=== PATIENT | female | born 1980 | race Caucasian/White ===

== ENCOUNTER → 2019-04-27 | Outpatient (CLI) | payer BC ==
--- NOTE | 2019-04-28 13:13 | MM ---
Reason for exam: screening (asymptomatic). Last mammogram was performed 1 year and 8 months ago. Physical Findings: A clinical breast exam by your physician is recommended on an annual basis and results should be correlated with mammographic findings. MG Screening Mammo w CAD Bilateral CC and MLO view(s) were taken. Prior study comparison: September 05, 2017, bilateral MG screening mammo w CAD. There are scattered fibroglandular densities. There is no discrete abnormality. ASSESSMENT: Negative, BI-RAD 1 RECOMMENDATION: Routine screening mammogram of both breasts in 1 year.
== END | disposition home or self-care (01) ==
LOC: RADMAMWWP 07:50
PROVIDERS: ATTEND Family Medicine
DX: Z12.31 Encounter for screening mammogram for malignant neoplasm of breast (principal)
CPT/HCPCS: 77067

== ENCOUNTER → 2021-01-02 | Outpatient (CLI) | payer BC ==
--- NOTE | 2021-01-03 14:39 | MM ---
Reason for exam: screening (asymptomatic). Last mammogram was performed 1 year and 8 months ago. Physical Findings: A clinical breast exam by your physician is recommended on an annual basis and results should be correlated with mammographic findings. MG Screening Mammo w CAD Bilateral CC and MLO view(s) were taken. Prior study comparison: April 27, 2019, bilateral MG screening mammo w CAD. September 05, 2017, bilateral MG screening mammo w CAD. There are scattered fibroglandular densities. There is no discrete abnormality. No significant changes when compared with prior studies. ASSESSMENT: Negative, BI-RAD 1 RECOMMENDATION: Routine screening mammogram of both breasts in 1 year.
== END | disposition home or self-care (01) ==
LOC: RADMAMWWP 10:04
PROVIDERS: ATTEND Obstetrics & Gynecology
DX: Z12.31 Encounter for screening mammogram for malignant neoplasm of breast (principal)
CPT/HCPCS: 77067

== ENCOUNTER → 2021-01-09 | Outpatient (CLI) | payer BC ==
--- NOTE | 2021-01-09 12:19 | US ---
EXAMINATION TYPE: US abdomen limited DATE OF EXAM: 01/09/2021 COMPARISON: NONE CLINICAL HISTORY: K43.9 Hernia of interior abdominal wall. Assess for hernia at location of: left abdominal wall Patient has palpable abnormality left. Gross morbid obesity. Unable to visualize hernia by ultrasound . Real-time scanning was performed by the shoe repair supervisor utilizing Valsalva and additional dynamic maneuve rs to assess for hernia. Images of the contralateral side were also acquired for direct comparison. IMPRESSION: 1. No suspicious abnormalities just anterior abdominal wall hernia. Additional evaluation with radiog raphic, CT is recommended.
== END | disposition home or self-care (01) ==
LOC: RADUSWWP 07:09
PROVIDERS: ATTEND Family Medicine
DX: K43.9 Ventral hernia without obstruction or gangrene (principal)
CPT/HCPCS: 76705

== ENCOUNTER → 2022-01-15 | Outpatient (CLI) | payer OTHER ==
--- NOTE | 2022-01-17 10:47 | MM ---
Reason for exam: screening (asymptomatic). Last mammogram was performed 1 year ago. History: Patient is nulliparous. Taking hormonal contraceptives for 7 years. Physical Findings: A clinical breast exam by your physician is recommended on an annual basis and results should be correlated with mammographic findings. MG Screening Mammo w CAD Bilateral CC, MLO, and XCCL view(s) were taken. Prior study comparison: January 02, 2021, bilateral MG screening mammo w CAD. April 27, 2019, bilateral MG screening mammo w CAD. There are scattered fibroglandular densities. No significant changes when compared with prior studies. ASSESSMENT: Benign, BI-RAD 2 RECOMMENDATION: Routine screening mammogram of both breasts in 1 year.
== END | disposition home or self-care (01) ==
LOC: RADMAMWWP 14:45
PROVIDERS: ATTEND Obstetrics & Gynecology
DX: Z12.31 Encounter for screening mammogram for malignant neoplasm of breast (principal)
CPT/HCPCS: 77067

== ENCOUNTER → 2022-03-29 | Outpatient (CLI) | payer OTHER ==
--- NOTE | 2022-03-29 14:06 | CT ---
EXAMINATION TYPE: CT chest wo con CT DLP: 1203.5 mGycm, Automated exposure control for dose reduction was used. DATE OF EXAM: 03/29/2022 1:46 PM COMPARISON: None CLINICAL INDICATION:Female, 42 years old with history of J98.8 OTHER SPECIFIED RESPIRATORY DISORDERS, Other specified respiratory disorders TECHNIQUE: Multiple axial images were obtained through the chest without IV contrast. Lack of IV or o ral contrast limits evaluation of solid and hollow organ viscera. FINDINGS: LUNGS/ PLEURA: The lung parenchyma appears unremarkable. No evidence of focal consolidation, pneumot horax or pleural effusion. AIRWAY: Flattening of the distal trachea from HEART: The heart is mildly enlarged for size. MEDIASTINUM: There is a mass which is felt to be a complex cystic mass located just anterior to the t rachea bifurcation. The mass is 29 Hounsfield units and measures 5.3 x 4.1 x 5.0 cm. There is at leas t 50% narrowing of the distal trachea and bilateral proximal main bronchi. No gross evidence of adenopathy. VASCULATURE: No aortic aneurysm. Pulmonary trunk is dilated measuring up to 34 mm. MUSCULOSKELETAL: No acute osseous abnormalities. There is a subacute right rib 8 fracture. SOFT TISSUES/LYMPH NODES: Unremarkable. LOWER NECK: No significant findings. Nodular changes to the thyroid gland bilaterally. UPPER ABDOMEN: Diffuse low-attenuation to the liver parenchyma. IMPRESSION: 1. Mediastinal probable cystic mass measuring up to 5.3 cm which abuts the distal trachea and bilate ral main bronchi resulting in stenosis of at least 50%. This may represent a bronchogenic cyst, peric ardial cyst versus other cystic lesions including cystic degeneration in the setting of malignancy wh ich is felt to be much less likely given absence of other findings. Further evaluation with MRI of th e chest is recommended. 2. Subacute right rib 8 fracture. 3. Hepatic steatosis. 4. Mild cardiomegaly. 5. Findings suggestive of pulmonary hypertension.
== END | disposition home or self-care (01) ==
LOC: RADCTMAIN 13:26
PROVIDERS: ATTEND Family Medicine
DX: J98.8 Other specified respiratory disorders (principal); K76.0 Fatty (change of) liver, not elsewhere classified; I51.7 Cardiomegaly
CPT/HCPCS: 71250

== ENCOUNTER → 2022-04-30 | Outpatient (CLI) | payer OTHER ==
--- NOTE | 2022-04-30 14:32 | US ---
EXAMINATION TYPE: US thyroid st tissue head/neck DATE OF EXAM: 04/30/2022 COMPARISON: NONE CLINICAL HISTORY: E04.1 THYROID NODULE. Nodular changes. Patient has been on thyroid medication for y ears. GLAND SIZE: Right Lobe: 5.4 x 1.7 x 1.8 cm Overall Parenchyma: heterogenous Left Lobe: 3.9 x 1.8 x 1.6 cm Overall Parenchyma: heterogeneous Isthmus Thickness: 0.6 cm NODULES RIGHT: # of nodules measured on right: 0 LEFT: # of nodules measured on left: 0 ISTHMUS: # of nodules measured in the isthmus: 0 Bilateral neck scanned, no evidence of lymphadenopathy. Overall heterogeneous thyroid. No obvious nodules visualized. IMPRESSION: Right lobe of the thyroid is enlarged and the tissue is heterogeneous bilaterally. Correlate for thyr oiditis. 2017 ACR TI-RADS LEVEL: TR-RADS 1 - BENIGN: No FNA *Highest TI-RADS level nodule reported
== END | disposition home or self-care (01) ==
LOC: RADUSWWP 13:49
PROVIDERS: ATTEND Family Medicine
DX: E04.1 Nontoxic single thyroid nodule (principal)
CPT/HCPCS: 76536

== ENCOUNTER → 2022-06-04 | Outpatient (CLI) | payer OTHER ==
--- NOTE | 2022-06-04 13:05 | CA ---
Transthoracic Echo Report Name: Sarah Flowers Age: 42 Gender: F : 1980 Exam Date: 06/04/2022 11:36 Exam Location: [place] [facility] Ht (in): 64 Wt (lb): 334 Ordering Physician: Savannah Sheffield DO Attending/Referring Phys: Coreen Henao [facility] Roofer Apprentice Apryl Lin, PRABHAKAR Procedure CPT: Indications: I51.7 Cardiomegaly Cardiac Hx: Body Habitus Technical Quality: Fair Contrast 1: Total Dose (mL): Contrast 2: Total Dose (mL): MEASUREMENTS (Male / Female) Normal Values 2D ECHO LV Diastolic Diameter PLAX 4.3 cm 4.2 - 5.9 / 3.9 - 5.3 cm LV Systolic Diameter PLAX 3.2 cm IVS Diastolic Thickness 1.5 cm 0.6 - 1.0 / 0.6 - 0.9 cm LVPW Diastolic Thickness 1.4 cm 0.6 - 1.0 / 0.6 - 0.9 cm LV Relative Wall Thickness 0.7 RV Internal Dim ED PLAX 2.9 cm M-MODE Aortic Root Diameter MM 2.9 cm LA Systolic Diameter MM 4.0 cm LA Ao Ratio MM 1.4 DOPPLER MV Area PHT 3.3 cm??? Mitral E Point Velocity 69.6 cm/s Mitral A Point Velocity 100.0 cm/s Mitral E to A Ratio 0.7 MV Deceleration Time 232.1 ms MV E' Velocity 5.3 cm/s Mitral E to MV E' Ratio 13.2 FINDINGS Left Ventricle Left ventricular ejection fraction is estimated at 55 %. Right Ventricle Normal right ventricular size and function. Right Atrium Normal right atrial size. Left Atrium Normal left atrial size. Mitral Valve Mitral valve not well visualized. No significant mitral regurgitation. Aortic Valve Trileaflet aortic valve. Tricuspid Valve Structurally normal tricuspid valve. Mild tricuspid regurgitation. Pulmonic Valve Pulmonic valve not well visualized. Pericardium Echo free space anterior to the right ventricle likely represents a fat pad. Aorta Aortic root and proximal ascending aorta not well visualized. CONCLUSIONS Left ventricular EF 55% Mild tricuspid regurgitation. No pericardial effusion Previewed by: Dr. Ihsan Martines DO (Electronically Signed) Final Date: 04 June 2022 13:04
== END | disposition home or self-care (01) ==
LOC: RADECHMAIN 11:29
PROVIDERS: ATTEND Family Medicine
DX: I07.1 Rheumatic tricuspid insufficiency (principal)
CPT/HCPCS: 93306

== ENCOUNTER → 2022-07-03 | Outpatient (CLI) | payer OTHER ==
--- NOTE | 2022-07-03 13:33 | XR ---
EXAMINATION TYPE: XR chest 2V DATE OF EXAM: 07/03/2022 COMPARISON: 06/27/2020 TECHNIQUE: PA and lateral views submitted. HISTORY: Posterior mediastinal mass removal FINDINGS: Heart is enlarged. There is subsegmental changes at the right lung base with coarsened interstitium a nd cardiomegaly. Biapical pleural thickening with no sizable thorax. IMPRESSION: 1. Right basilar atelectasis or infiltrate with coarsened interstitium which could be on the basis of reduced inspiration. Correlate clinically to exclude an interstitial pneumonitis or bronchitis. 2. Cardiomegaly
== END | disposition home or self-care (01) ==
LOC: RADXRMAIN 13:12
PROVIDERS: ATTEND Thoracic Surgery (Cardiothoracic Vascular Surgery)
DX: I51.7 Cardiomegaly (principal); J98.11 Atelectasis
CPT/HCPCS: 71046

== ENCOUNTER → 2022-11-05 | Outpatient (CLI) | payer OTHER ==
--- NOTE | 2022-11-05 10:38 | XR ---
EXAMINATION TYPE: XR ankle complete RT DATE OF EXAM: 11/05/2022 COMPARISON: NONE HISTORY: Pain, fall. TECHNIQUE: Frontal, lateral and oblique images of the right ankle are obtained. COMPARISON: None. FINDINGS: There is no acute fracture/dislocation evident. The joint spaces appear within normal corado its. No soft tissue edema of the ankle. IMPRESSION: 1. There is no acute fracture or dislocation seen. 2. Mild soft tissue edema of the ankle.
--- NOTE | 2022-11-05 10:45 | XR ---
EXAMINATION TYPE: XR Hip RT and AP Pelvis DATE OF EXAM: 11/05/2022 10:19 AM INDICATION: Patient age:Female; 42 years old; Reason for study: S70.01XD S93.401D; H. COMPARISON: None. TECHNIQUE: The right hip was examined in the frontal and lateral projections and a AP pelvis. FINDINGS: There is a nondisplaced fracture involving the right greater trochanter. No dislocation. Pe lvic phleboliths identified. IMPRESSION: Acute nondisplaced fracture involving the right greater trochanter.
== END | disposition home or self-care (01) ==
LOC: RADXRMAIN 09:40
PROVIDERS: ATTEND Emergency Medicine
DX: S72.114A Nondisplaced fracture of greater trochanter of right femur, initial encounter for closed fracture (principal); S70.01XD Contusion of right hip, subsequent encounter; S93.401D Sprain of unspecified ligament of right ankle, subsequent encounter; R60.0 Localized edema
CPT/HCPCS: 73502

== ENCOUNTER → 2022-12-18 | Outpatient (CLI) | payer BC ==
--- NOTE | 2022-12-18 07:54 | CT ---
EXAMINATION TYPE: CT chest wo con DATE OF EXAM: 12/18/2022 COMPARISON: Chest CT March 29, 2022 HISTORY: Congenital cystic lung. Cyst removed in chest June 18, [address] DLP: 916 mGycm. Automated Exposure Control for Dose Reduction was Utilized. TECHNIQUE: CT scan of the thorax is performed without IV contrast. FINDINGS: Exam slightly suboptimal secondary to patient's large body habitus. LUNGS: The lungs remain grossly clear, there is no concerning new parenchymal mass or nodule identifi ed. There is no pleural effusion or pneumothorax seen. The tracheobronchial tree is patent. MEDIASTINUM: Lack of IV contrast is noted to limit evaluation for mediastinal and especially hilar ad enopathy. Interval removal of large low dense rounded mass in the paratracheal region with local mass effect. On current study there is 2.5 x 1.6 cm oval soft tissue density lesion suspected enlarged AP window lymph node. Persistent enlarged main pulmonary artery of 3.6 cm axial image 19 raising concer n for underlying pulmonary artery hypertension. No new cardiomegaly or pericardial effusion is seen. OTHER: Liver remains diffusely low dense. IMPRESSION: Interval successful surgical resection of the near 5.0 cm mediastinal cyst or cystic mass . There is an enlarged AP window lymph node suspected on current study at this level. No new acute pu lmonary process.
== END | disposition home or self-care (01) ==
LOC: RADCTMAIN 07:09
PROVIDERS: ATTEND Thoracic Surgery (Cardiothoracic Vascular Surgery)
DX: Q33.0 Congenital cystic lung (principal); R59.0 Localized enlarged lymph nodes
CPT/HCPCS: 71250

== ENCOUNTER → 2023-02-25 | Outpatient (CLI) | payer BC ==
--- NOTE | 2023-02-26 08:54 | MM ---
Reason for Exam: Screening (asymptomatic). Last mammogram was performed 1 year(s) and 1 month(s) ago. Patient History: Menarche at age 10. Patient has no children. Currently using Hormonal Contraceptives, for 7 years. Last menstrual period: 02/18/2023 Risk Values: Jessy 5 year model risk: 0.9%. NCI Lifetime model risk: 11.7%. Prior Study Comparison: 04/27/2019 Bilateral Screening Mammogram, [facility]. 01/02/2021 Bilateral Screening Mammogram, [facility]. 01/15/2022 Bilateral Screening Mammogram, [facility]. Tissue Density: There are scattered fibroglandular densities. Findings: Analyzed By CAD. There is no suspicious group of microcalcifications or new suspicious mass in either breast. Overall Assessment: Negative, BI-RAD 1 Management: Screening Mammogram of both breasts in [address] [facility] will attempt to contact patient to return for supplemental views and ultrasound if indicated. Patient should continue monthly self-breast exams. A clinical breast exam by your physician is recommended on an annual basis. This exam should not preclude additional follow-up of suspicious palpable abnormalities. Note on Jessy scores and lifetime risk: 1. A Jessy score greater than 3% is considered moderate risk. If this is the case, consider specialist referral to assess eligibility for a risk reducing agent. 2. If overall lifetime risk for the development of breast cancer is 20% or higher, the patient may qualify for future screening with alternating mammogram and breast MRI. Electronically signed and approved by: Nic Mujica DO
== END | disposition home or self-care (01) ==
LOC: RADMAMWWP 09:18
PROVIDERS: ATTEND Obstetrics & Gynecology
DX: Z12.31 Encounter for screening mammogram for malignant neoplasm of breast (principal)
CPT/HCPCS: 77067

== ENCOUNTER → 2024-03-23 | Outpatient (CLI) | payer BC ==
--- NOTE | 2024-03-26 10:55 | MM ---
Reason for Exam: Screening (asymptomatic). Last mammogram was performed 1 year(s) and 1 month(s) ago. Patient History: Menarche at age 10. Patient has no children. Currently using Hormonal Contraceptives, for 7 years. Risk Values: Jessy 5 year model risk: 1.0%. NCI Lifetime model risk: 11.6%. Prior Study Comparison: 01/02/2021 Bilateral Screening Mammogram, [facility]. 01/15/2022 Bilateral Screening Mammogram, [facility]. 02/25/2023 Bilateral MG screening mammo w CAD, [facility]. Tissue Density: The breasts are almost entirely fatty. Findings: Analyzed By CAD. Right breast: There is no suspicious group of microcalcifications or new suspicious mass. Left breast: There is no suspicious group of microcalcifications or new suspicious mass. Overall Assessment: Negative, BI-RAD 1 Management: Screening Mammogram of both breasts in [address] [facility] will attempt to contact patient to return for supplemental views and ultrasound if indicated. Patient should continue monthly self-breast exams. A clinical breast exam by your physician is recommended on an annual basis. This exam should not preclude additional follow-up of suspicious palpable abnormalities. Note on Jessy scores and lifetime risk: 1. A Jessy score greater than 3% is considered moderate risk. If this is the case, consider specialist referral to assess eligibility for a risk reducing agent. 2. If overall lifetime risk for the development of breast cancer is 20% or higher, the patient may qualify for future screening with alternating mammogram and breast MRI. Electronically signed and approved by: Nic Mujica DO
== END | disposition home or self-care (01) ==
LOC: RADMAMWWP 11:55
PROVIDERS: ATTEND Family Medicine
DX: Z12.31 Encounter for screening mammogram for malignant neoplasm of breast (principal)
CPT/HCPCS: 77067

== ENCOUNTER → 2024-06-15 | Outpatient (CLI) | payer BC ==
--- NOTE | 2024-06-15 13:24 | CT ---
EXAMINATION TYPE: CT chest wo con CT DLP: 2681.50 mGycm, Automated exposure control for dose reduction was used. DATE OF EXAM: 06/15/2024 1:06 PM COMPARISON: 07/22/2023. CLINICAL INDICATION: Female, 44 years old with history of J98.4 disorder of lung, F/U ON LUNG, HX OF SX ON AIR SAC THAT WAS BLOCKING AIR WAY XFEW YEARS AGO. TECHNIQUE: Multiple axial images were obtained through the chest. Sagittal and coronal reformats were created for review. Contrast used: mL of (None if empty) Oral contrast used: (None if empty) FINDINGS: LUNGS/ PLEURA: No focal consolidation, pneumothorax or pleural effusion. No evidence for air trapping and expectorate exam. Prone imaging demonstrates no evidence for interstitial lung disease or honeyc ombing in the bases. AIRWAY: No evidence for bronchiectasis or bronchial wall dilation. No enlarging right mastectomy visu alized. HEART: Size within normal limits. MEDIASTINUM: No gross evidence of adenopathy. Hiatal hernia seen on prone imaging only. VASCULATURE: No aortic aneurysm. MUSCULOSKELETAL: No acute osseous abnormalities SOFT TISSUES/LYMPH NODES: Unremarkable. LOWER NECK: No significant findings. UPPER ABDOMEN: No significant findings. IMPRESSION: No evidence for acute thoracic process. No focal consolidation, pneumothorax or pleural effusion. No evidence for interstitial lung disease.
== END | disposition home or self-care (01) ==
LOC: RADCTMAIN 12:41
PROVIDERS: ATTEND Internal Medicine
DX: J98.4 Other disorders of lung (principal)
CPT/HCPCS: 71250

== ENCOUNTER → 2024-11-30 | Outpatient (CLI) | payer BC ==
--- NOTE | 2024-11-30 17:45 | CT ---
EXAMINATION TYPE: CT abdomen pelvis wo con CT DLP: 1143 mGycm, Automated exposure control for dose reduction was used. DATE OF EXAM: 11/30/2024 5:37 PM COMPARISON: Abdominal ultrasound 01/09/2021 CLINICAL INDICATION:Female, 44 years old with history of R10.32; llq pain TECHNIQUE: Standard CT of the abdomen and pelvis without IV or oral contrast. Lack of IV or oral co ntrast limits evaluation of solid and hollow organ viscera. Coronal and sagittal reformats were perfo rmed. FINDINGS: LOWER CHEST: Unremarkable ABDOMEN LIVER: Diffusely hypoattenuating parenchyma. GALLBLADDER AND BILE DUCTS: Unremarkable noncontrast appearance. PANCREAS: Unremarkable noncontrast appearance. SPLEEN: Unremarkable noncontrast appearance. ADRENAL GLANDS: Unremarkable noncontrast appearance. KIDNEYS AND URETERS: No evidence of hydronephrosis or renal calculus. Posterior right mid kidney exop hytic subcentimeter lesion which is too small characterize but likely represents a cyst. PELVIS BLADDER: Unremarkable noncontrast appearance. REPRODUCTIVE: Unremarkable noncontrast appearance. ABDOMEN & PELVIS STOMACH AND BOWEL: No focal bowel wall thickening or surrounding inflammatory changes. No colonic div erticula. No focal bowel wall thickening or surrounding inflammatory changes. No evidence of bowel ob struction. PERITONEUM: No evidence of pneumoperitoneum or free fluid. VASCULATURE: No evidence of aortic aneurysm. Left-sided pelvic phlebolith. MUSCULOSKELETAL: No acute osseous abnormalities. Degenerative disc disease and facet arthropathy at L 5-S1. LYMPH NODES: No gross evidence for lymphadenopathy. SOFT TISSUE/ABDOMINAL WALL: Unremarkable IMPRESSION: 1. No acute abdominal/pelvic process within limitations of a noncontrast exam. 2. Hepatic steatosis. [facility], , 11/30/2024 5:42 PM
== END | disposition home or self-care (01) ==
LOC: RADCTMAIN 17:13
PROVIDERS: ATTEND Family Medicine
DX: K76.0 Fatty (change of) liver, not elsewhere classified (principal)
CPT/HCPCS: 74176

== ENCOUNTER → 2024-11-30 | Outpatient (CLI) | payer BC ==
[2024-11-30 15:44] LABS: Basophils # (A) 0.04 X 10*3/uL (0.00-0.10); Basophils % (A) 0.5 %; Eosinophils # (A) 0.06 X 10*3/uL (0.04-0.35); Eosinophils % (A) 0.7 %; HCT 45.4 % (37.2-46.3); HGB 15.5 g/dL (12.0-15.0); Lymphocytes # (A) 1.63 X 10*3/uL (0.90-5.00); Lymphocytes % (A) 19.9 %; MCH 31.1 pg (27.0-32.0); MCHC 34.1 g/dL (32.0-37.0); MCV 91.2 FL (80.0-97.0); Mean Platelet Volume 9.9 FL (9.5-12.2); Monocytes # (A) 0.49 X 10*3/uL (0.20-1.00); NRBC Per 100 WBC 0 X 10*3/uL (0.00-0.01); Neutrophils # (A) 5.96 X 10*3/uL (1.80-7.70); Neutrophils % (A) 72.5 %; Platelet Count 300 X 10*3/uL (140-440); RBC 4.98 X 10*6/uL (4.10-5.20); RDW 13.3 % (11.5-14.5); WBC 8.21 X 10*3/uL (4.50-10.00)
[2024-11-30 17:04] LABS: NT-Pro-B-Type Natriuretic Pept 151 pg/mL (0-125)
[2024-11-30 17:05] LABS: ALT 30 U/L (8-44); AST 17 U/L (13-35); Albumin 4.6 g/dL (3.8-4.9); Albumin/Globulin Ratio 1.39 Ratio (1.60-3.17); Alkaline Phosphatase 102 U/L (41-126); BUN/Creat Ratio 10.17 Ratio (12.00-20.00); Blood Urea Nitrogen 12.2 mg/dL (9.0-27.0); Calcium 10.5 mg/dL (8.7-10.3); Chloride 101 mmol/L (96-109); Globulin 3.3 g/dL (1.6-3.3); Glucose 154 mg/dL (70-110); Magnesium 1.9 mg/dL (1.5-2.4); Potassium 4.2 mmol/L (3.5-5.5); Sodium 137 mmol/L (135-145); Total Bilirubin 0.4 mg/dL (0.3-1.2); Total Protein 7.9 g/dL (6.2-8.2)
== END | disposition home or self-care (01) ==
LOC: LABWHC1 11:36
PROVIDERS: ATTEND Family Medicine
DX: I51.7 Cardiomegaly (principal); R19.7 Diarrhea, unspecified
CPT/HCPCS: 36415; 80053; 83735; 83880; 85025

== ENCOUNTER → 2024-12-09 | Outpatient (CLI) | payer BC ==
[2024-12-09 15:06] LABS: Chloride 106 mmol/L (96-109); Glucose 148 mg/dL (70-110); Potassium 4.5 mmol/L (3.5-5.5); Sodium 140 mmol/L (135-145)
[2024-12-09 15:07] LABS: ALT 13 U/L (8-44); AST 12 U/L (13-35); Albumin 4.2 g/dL (3.8-4.9); Alkaline Phosphatase 82 U/L (41-126); Calcium 10.4 mg/dL (8.7-10.3); Carbon Dioxide 21.6 mmol/L (21.6-31.8); Total Bilirubin 0.4 mg/dL (0.3-1.2); Total Protein 7.2 g/dL (6.2-8.2)
== END | disposition home or self-care (01) ==
LOC: LABWHC1 08:13
PROVIDERS: ATTEND Family Medicine
DX: E86.0 Dehydration (principal)
CPT/HCPCS: 36415; 80053

== ENCOUNTER → 2025-02-15 | Outpatient (CLI) | payer BC ==
--- NOTE | 2025-02-16 13:17 | CA ---
Transthoracic Echo Report Name: Sarah Flowers Age: 45 Gender: F : 1980 Exam Date: 02/15/2025 11:25 Exam Location: [place] Ht (in): 63 Wt (lb): 294 Ordering Physician: Yannick Kaur MD Attending/Referring Phys: Coreen Henao [facility] Hair Assistant Gely Mcghee RDCS Procedure CPT: Indications: R00.0 tachycardia Cardiac Hx: rheumatoid arthritis Technical Quality: Fair Contrast 1: Total Dose (mL): Contrast 2: Total Dose (mL): MEASUREMENTS (Male / Female) Normal Values 2D ECHO LV Diastolic Diameter PLAX 4.7 cm 4.2 - 5.9 / 3.9 - 5.3 cm LV Systolic Diameter PLAX 4.3 cm IVS Diastolic Thickness 1.6 cm 0.6 - 1.0 / 0.6 - 0.9 cm LVPW Diastolic Thickness 1.1 cm 0.6 - 1.0 / 0.6 - 0.9 cm LV Relative Wall Thickness 0.6 LVOT Diameter 2.3 cm LV Diastolic Volume MOD BP 97.9 cm??? 67 - 155 / 56 - 104 cm??? LV Systolic Volume MOD BP 33.2 cm??? 22 - 58 / 19 - 49 cm??? LV Ejection Fraction MOD BP 66.1 % >= 55 % LV Cardiac Index MOD BP 2564.7 cm???/min???m??? LV Diastolic Volume MOD 4C 104.7 cm??? LV Systolic Volume MOD 4C 35.6 cm??? LV Ejection Fraction MOD 4C 66.0 % LV Cardiac Index MOD 4C 2740.8 cm???/min???m??? LV Diastolic Length 4C 8.2 cm LV Systolic Length 4C 7.0 cm LV Diastolic Volume MOD 2C 90.7 cm??? LV Systolic Volume MOD 2C 28.8 cm??? LV Ejection Fraction MOD 2C 68.3 % LV Cardiac Index MOD 2C 2456.4 cm???/min???m??? LV Diastolic Length 2C 8.3 cm LV Systolic Length 2C 6.5 cm LA Volume 51.9 cm??? 18 - 58 / 22 - 52 cm??? LA Volume Index 20.6 cm???/m??? 16 - 28 cm???/m??? Ascending Aorta Diameter 3.3 cm DOPPLER AV Peak Velocity 172.1 cm/s AV Peak Gradient 11.9 mmHg AV Mean Velocity 124.3 cm/s AV Mean Gradient 6.6 mmHg AV Velocity Time Integral 29.0 cm LVOT Peak Velocity 150.0 cm/s LVOT Peak Gradient 9.0 mmHg LVOT Velocity Time Integral 24.2 cm LVOT Stroke Volume 103.2 cm??? LVOT Stroke Volume Index 45.3 ml/m??? LVOT Cardiac Index 4092.0 cm???/min???m??? AV Area Cont Eq vti 3.6 cm??? AV Area Cont Eq pk 3.7 cm??? MV Area PHT 6.3 cm??? Mitral E Point Velocity 74.3 cm/s Mitral A Point Velocity 104.0 cm/s Mitral E to A Ratio 0.7 MV Deceleration Time 120.1 ms PV Peak Velocity 135.3 cm/s PV Peak Gradient 7.3 mmHg FINDINGS Left Ventricle Left ventricular ejection fraction is estimated at 60%. Severely increased septal wall thickness. Mildly increased posterior wall thickness. Left ventricular cavity size normal. No obvious regional wall motion abnormalities. Right Ventricle Normal right ventricular size and function. Unable to estimate the right ventricular systolic pressure. Right Atrium Normal right atrial size. Left Atrium Normal left atrial size. Mitral Valve Structurally normal mitral valve. No mitral stenosis, regurgitation or prolapse. Aortic Valve Trileaflet aortic valve. No aortic stenosis. No aortic regurgitation. Tricuspid Valve Structurally normal tricuspid valve. No tricuspid stenosis, regurgitation or prolapse. Pulmonic Valve Structurally normal pulmonic valve. No pulmonic stenosis. No pulmonic regurgitation. Pericardium Normal pericardium. No pericardial or pleural effusion. Aorta Normal size aortic root and proximal ascending aorta. CONCLUSIONS Normal LV systolic size and function with moderate concentric LVH. No significant abnormality on the Doppler exam. Right-sided pressures are not well quantified. No pericardial effusion Previewed by: Dr. Lauri Bae MD (Electronically Signed) Final Date: 16 Feb 2025 13:16
== END | disposition home or self-care (01) ==
LOC: RADECHMAIN 11:20
PROVIDERS: ATTEND Family Medicine
DX: R00.0 Tachycardia, unspecified (principal)
CPT/HCPCS: 93306

== ENCOUNTER → 2025-03-29 | Outpatient (CLI) | payer BC ==
--- NOTE | 2025-03-29 10:04 | MM ---
Reason for Exam: Screening (asymptomatic). Last screening mammogram was performed 12 month(s) ago. Patient History: Menarche at age 10. Patient has no children. Currently using Hormonal Contraceptives, for 7 years. Risk Values: Jessy 5 year model risk: 1.0%. NCI Lifetime model risk: 11.4%. Prior Study Comparison: 01/15/2022 Bilateral Screening Mammogram, [facility]. 02/25/2023 Bilateral MG screening mammo w CAD, [facility]. 03/23/2024 Bilateral MG screening mammo w CAD, [facility]. Tissue Density: The breasts are almost entirely fatty. Findings: Analyzed By CAD. Right breast: There is no suspicious group of microcalcifications or new suspicious mass. Left breast: There is no suspicious group of microcalcifications or new suspicious mass. Overall Assessment: Negative, BI-RAD 1 Management: Screening Mammogram of both breasts in [address] [facility] will attempt to contact patient to return for supplemental views and ultrasound if indicated. Patient should continue monthly self-breast exams. A clinical breast exam by your physician is recommended on an annual basis. This exam should not preclude additional follow-up of suspicious palpable abnormalities. Note on Jessy scores and lifetime risk: 1. A Jessy score greater than 3% is considered moderate risk. If this is the case, consider specialist referral to assess eligibility for a risk reducing agent. 2. If overall lifetime risk for the development of breast cancer is 20% or higher, the patient may qualify for future screening with alternating mammogram and breast MRI. [facility], , 03/29/2025 10:01 AM. Electronically signed and approved by: Nic Mujica DO
== END | disposition home or self-care (01) ==
LOC: RADMAMWWP 09:32
PROVIDERS: ATTEND Family Medicine
DX: Z12.31 Encounter for screening mammogram for malignant neoplasm of breast (principal); R92.313 Mammographic fatty tissue density, bilateral breasts; Z79.3 Long term (current) use of hormonal contraceptives
CPT/HCPCS: 77063; 77067